=== PATIENT | female | born 1995 | race Caucasian/White ===

== ENCOUNTER 2023-03-18 19:03 | Day surgery (SDC) | payer BC ==
[2023-03-18] MEDS ORDERED: hydrALAZINE 20 MG/ML VIAL SLOW IVP PRN (21:10)
[2023-03-18 21:49] VITALS: BMI 31.4
== END 2023-03-18 22:19 | disposition home or self-care (01) ==
LOC: CSHLD/OP 19:03
PROVIDERS: ATTEND Obstetrics & Gynecology
DX: O26.893 Other specified pregnancy related conditions, third trimester (principal); R10.9 Unspecified abdominal pain; O99.283 Endocrine, nutritional and metabolic diseases complicating pregnancy, third trimester; E03.9 Hypothyroidism, unspecified; O99.343 Other mental disorders complicating pregnancy, third trimester; F32.A Depression, unspecified; Z79.899 Other long term (current) drug therapy; Z79.890 Hormone replacement therapy; Z90.49 Acquired absence of other specified parts of digestive tract; Z3A.34 34 weeks gestation of pregnancy
CPT/HCPCS: 99282